=== PATIENT | female | born 1965 | race Caucasian/White ===

== ENCOUNTER 2018-02-22 09:44 | Emergency (ER) | payer OTHER ==
[2018-02-22 12:33] LABS: ADD MAN DIFF? NO
[2018-02-22 12:36] LABS: BASOPHIL # 0.1 10^3/ul (0.0-0.1); BASOPHILS % 0.7 % (0.0-2.0); EOSINOPHILS # 0.1 10^3/ul (0.0-0.5); EOSINOPHILS % 1.7 % (0.0-7.0); HEMATOCRIT 35.5 % (37.0-47.0); HEMOGLOBIN 11.2 g/dl (12.0-16.0); LYMPHOCYTES # 1.9 10^3/ul (0.8-2.9); LYMPHOCYTES % 25.2 % (15.0-51.0); MEAN CORPUSCULAR HEMOGLOBIN 25.5 pg (29.0-33.0); MEAN CORPUSCULAR HGB CONC 31.5 g/dl (32.0-37.0); MEAN CORPUSCULAR VOLUME 80.9 fl (82.0-101.0); MEAN PLATELET VOLUME 9.5 fl (7.4-10.4); MONOCYTE # 0.6 10^3/ul (0.3-0.9); MONOCYTES % 8.1 % (0.0-11.0); NEUTROPHIL # 4.9 10^3/ul (1.6-7.5); PLATELET COUNT 367 10^3/UL (140-415); RED BLOOD COUNT 4.39 10^6/ul (4.20-5.40); RED CELL DISTRIBUTION WIDTH 14.7 % (11.5-14.5)
[2018-02-22 12:36] LABS: WHITE BLOOD COUNT 7.6 10^3/ul (4.8-10.8)
[2018-02-22] MEDS: LIDOCAINE/MYLANTA 40 ML BTL PO (12:44)
[2018-02-22] MEDS: FAMOTIDINE 20 MG TAB PO (12:44)
[2018-02-22 12:52] LABS: ALANINE AMINOTRANSFERASE 40 IU/L (13-69); ALBUMIN 4.3 g/dl (3.3-4.9); ALBUMIN/GLOBULIN RATIO 1.26; ALKALINE PHOSPHATASE 88 IU/L (42-121); ANION GAP 16 (8-16); ASPARTATE AMINO TRANSFERASE 37 IU/L (15-46); BILIRUBIN,INDIRECT 0.4 mg/dl (0-1.1); BILIRUBIN,TOTAL 0.4 mg/dl (0.2-1.3); BLOOD UREA NITROGEN 12 mg/dl (7-20); CALCIUM 9.3 mg/dl (8.4-10.2); CARBON DIOXIDE 27 mmol/L (21-31); CHLORIDE 103 mmol/L (97-110); CREATININE 0.71 mg/dl (0.44-1.00); GLUCOSE 103 mg/dl (70-220); LIPASE 77 U/L (23-300); POTASSIUM 3.8 mmol/L (3.5-5.1); SODIUM 142 mmol/L (135-144); TOTAL PROTEIN 7.7 g/dl (6.1-8.1)
[2018-02-22 14:28] LABS: ADD UMIC YES; UR ASCORBIC ACID NEGATIVE (NEGATIVE); UR BACTERIA FEW /HPF (NONE SEEN); UR BILIRUBIN (Dip) NEGATIVE (NEGATIVE); UR BLOOD (Dip) 1+ mg/dL (NEGATIVE); UR CLARITY CLEAR (CLEAR); UR COLOR STRAW (YELLOW); UR GLUCOSE (Dip) NEGATIVE (NEGATIVE); UR KETONES (Dip) NEGATIVE (NEGATIVE); UR LEUKOCYTE ESTERASE (Dip) NEGATIVE Leu/ul (NEGATIVE); UR NITRITE (Dip) NEGATIVE (NEGATIVE); UR RBC 0 /HPF (0-5); UR SPECIFIC GRAVITY (Dip) 1.003 (1.003-1.030); UR TOTAL PROTEIN (Dip) NEGATIVE (NEGATIVE); UR UROBILINOGEN (Dip) NEGATIVE (NEGATIVE); UR WBC 0 /HPF (0-5)
== END 2018-02-22 15:15 | disposition home or self-care (01) ==
LOC: E/R 09:44
DX: R10.13 Epigastric pain (principal); R14.1 Gas pain; D64.9 Anemia, unspecified; I10 Essential (primary) hypertension
CPT/HCPCS: 36415; 74018; 80053; 81001; 83690; 85025; 93005; 99285-25

== ENCOUNTER 2018-10-18 16:43 | Emergency (ER) | payer OTHER | END 2018-10-18 19:04 | disposition home or self-care (01) | LOC: FTE 16:43 | DX: R05 Cough (principal); R09.81 Nasal congestion; R51 Headache; I10 Essential (primary) hypertension | CPT/HCPCS: 99283; Z7502 ==

== ENCOUNTER 2019-02-03 17:18 | Emergency (ER) | payer OTHER ==
[2019-02-03 19:26] LABS: ADD MAN DIFF? NO
[2019-02-03 19:28] LABS: BASOPHILS % 0.5 % (0.0-2.0); EOSINOPHILS # 0.3 10^3/ul (0.0-0.5); EOSINOPHILS % 4.1 % (0.0-7.0); HEMATOCRIT 35.3 % (37.0-47.0); HEMOGLOBIN 11.4 g/dl (12.0-16.0); LYMPHOCYTES # 1.8 10^3/ul (0.8-2.9); LYMPHOCYTES % 28.5 % (15.0-51.0); MEAN CORPUSCULAR HEMOGLOBIN 28.1 pg (29.0-33.0); MEAN CORPUSCULAR HGB CONC 32.3 g/dl (32.0-37.0); MEAN CORPUSCULAR VOLUME 86.9 fl (82.0-101.0); MEAN PLATELET VOLUME 9.8 fl (7.4-10.4); MONOCYTE # 0.7 10^3/ul (0.3-0.9); MONOCYTES % 10.3 % (0.0-11.0); NEUTROPHIL # 3.6 10^3/ul (1.6-7.5); NEUTROPHILS % 56.4 % (39.0-77.0); PLATELET COUNT 346 10^3/UL (140-415); RED BLOOD COUNT 4.06 10^6/ul (4.20-5.40); RED CELL DISTRIBUTION WIDTH 13.2 % (11.5-14.5)
[2019-02-03 19:28] LABS: WHITE BLOOD COUNT 6.3 10^3/ul (4.8-10.8)
[2019-02-03] MEDS: FAMOTIDINE 20 MG TAB PO (19:28)
[2019-02-03] MEDS: METOCLOPRAMIDE 10 MG INJ IV (19:28)
[2019-02-03 19:46] LABS: ANION GAP 11 (5-13); BLOOD UREA NITROGEN 19 mg/dl (7-20); CALCIUM 9.6 mg/dl (8.4-10.2); CARBON DIOXIDE 28 mmol/L (21-31); CHLORIDE 103 mmol/L (97-110); CREATININE 0.74 mg/dl (0.44-1.00); Estimated GFR > 60 mL/min (>60); GLUCOSE 87 mg/dl (70-220); POTASSIUM 3.7 mmol/L (3.5-5.1); SODIUM 142 mmol/L (135-144)
[2019-02-03 20:24] LABS: ADD UMIC YES; UR ASCORBIC ACID NEGATIVE (NEGATIVE); UR BACTERIA FEW /HPF (NONE SEEN); UR BILIRUBIN (Dip) NEGATIVE (NEGATIVE); UR BLOOD (Dip) 2+ mg/dL (NEGATIVE); UR CLARITY SLIGHTLY CLOUDY (CLEAR); UR COLOR YELLOW (YELLOW); UR GLUCOSE (Dip) NEGATIVE (NEGATIVE); UR KETONES (Dip) NEGATIVE (NEGATIVE); UR LEUKOCYTE ESTERASE (Dip) NEGATIVE Leu/ul (NEGATIVE); UR NITRITE (Dip) NEGATIVE (NEGATIVE); UR RBC 2 /HPF (0-5); UR SPECIFIC GRAVITY (Dip) 1.014 (1.003-1.030); UR SQUAMOUS EPITHELIAL CELL FEW /HPF (FEW); UR TOTAL PROTEIN (Dip) NEGATIVE (NEGATIVE); UR UROBILINOGEN (Dip) NEGATIVE (NEGATIVE); UR WBC 2 /HPF (0-5)
== END 2019-02-03 20:52 | disposition home or self-care (01) ==
LOC: E/R 17:18
DX: R10.32 Left lower quadrant pain (principal); I10 Essential (primary) hypertension; K59.00 Constipation, unspecified
CPT/HCPCS: 36415; 74176; 80048; 81001; 85025; 96374; 99285-25

== ENCOUNTER 2019-03-29 21:31 | Emergency (ER) | payer OTHER ==
[2019-03-29] MEDS: HYDROCODONE/APAP (10/325) TAB PO (23:44)
== END 2019-03-30 00:33 | disposition home or self-care (01) ==
LOC: FTE 03-30 00:33
DX: B35.1 Tinea unguium (principal); I10 Essential (primary) hypertension
CPT/HCPCS: 99283; Z7502

== ENCOUNTER 2019-05-30 11:20 | Day surgery (SDC) | payer OTHER ==
[2019-05-30] MEDS ORDERED: LIDOCAINE 2% (SDV) 5 ML INJ (14:02)
[2019-05-30] MEDS ORDERED: PROPOFOL 200 MG INJ (14:02)
[2019-05-30] MEDS ORDERED: FENTAnyl 50 MCG/ML VIAL (14:12)
== END 2019-05-30 16:12 | disposition home or self-care (01) ==
LOC: GIL 11:20
DX: K64.8 Other hemorrhoids (principal); D50.9 Iron deficiency anemia, unspecified; K44.9 Diaphragmatic hernia without obstruction or gangrene; K21.9 Gastro-esophageal reflux disease without esophagitis; I10 Essential (primary) hypertension
CPT/HCPCS: 43239; 84703; 88305